=== PATIENT | male | born 1965 | race Caucasian/White ===

== ENCOUNTER 2017-02-18 10:55 | Inpatient (IN) | payer MEDICAID, OTHER ==
[~2017-02-18] VITALS: Ht 180.3 cm; Wt 69.3 kg
[2017-02-18] VITALS (11 sets, daily range): BP systolic 91–104; BP diastolic 52–65
[~2017-02-18 10:55] MED LIST: CARI-277; NOR10T
[2017-02-18] MEDS ORDERED: SODIUM CHLORIDE 0.9% 1,000 ML IVB ONE (11:20)
[2017-02-18] MEDS ORDERED: ONDANSETRON HCL 4 MG/2 ML VIAL IV ONE (11:30)
[2017-02-18 12:02] LABS: DEFINITIVE VIEW TRANSMISSION; Hematocrit 19.2 % (41.0-53.0); Mean Corpuscular Hemoglobin 26.7 pg (28.0-32.0); Mean Corpuscular Hgb Conc. 32.7 g/dL (32.0-36.0); Mean Corpuscular Volume 81.5 fL (80.0-100.0); Mean Platelet Volume 7.8 fL (7.4-10.4); Platelet Count (auto) 227 10^3/uL (140-450); Red Cell Distribution Width 17.5 % (11.6-16.0); SUSPECT VIEW TRANSMISSION; White Blood Cell 12.9 10^3/uL (4.4-10.8)
[2017-02-18 12:16] LABS: Hemoglobin 6.3 g/dL (13.5-17.5)
[2017-02-18 12:17] LABS: Metamyelocytes % 0; Myelocytes % 0; Promyelocytes % 0; Reactive Lymphocytes 0
[2017-02-18 12:18] LABS: Partial Thromboplastin Time 29.8 sec (22.64-33.71)
[2017-02-18 12:22] LABS: INR 1.34 (0.9-1.15); Prothrombin Time 14.7 sec (9.37-12.3)
[2017-02-18 12:25] LABS: Albumin 1.6 g/dL (3.4-5.0); BUN/Creatinine Ratio 22.9; Bilirubin, Total 0.9 mg/dL (0.2-1.0); Calcium 7.7 mg/dL (8.5-10.1); Magnesium 2.3 mg/dL (1.6-2.6); Potassium 3.3 mmol/L (3.5-5.1); Total Protein 5.6 g/dL (6.4-8.2)
[2017-02-18] MEDS ORDERED: cefTRIAXone 1GM/50ML D5W 50 ML IV ONE (12:30)
[2017-02-18] MEDS ORDERED: HYDROcodone-ACET 5/325MG TAB PO PRN (12:45)
[2017-02-18] MEDS ORDERED: MORPHINE SULF INJ 2 MG/ML SYRINGE 1ML IV PRN ×3 (12:45→13:30)
[2017-02-18] MEDS ORDERED: PROMETHAZINE HCL 25 MG/ML 1ML IV PRN (12:45)
[2017-02-18] MEDS ORDERED: LORazepam 0.5 MG TAB PO PRN (12:45)
[2017-02-18] MEDS ORDERED: NITROGLYCERIN 0.4 MG SL TAB SL PRN (12:45)
[2017-02-18] MEDS ORDERED: PANTOPRAZOLE SODIUM 40 MG/10 ML VIAL IV ONE (12:45)
[2017-02-18] MEDS ORDERED: TEMAZEPAM 15 MG CAP PO PRN (12:45)
[2017-02-18 13:09] LABS: Hypochromia Slight; Platelet Estimate Adequate
[2017-02-18] MEDS: SOD CHL 0.9%/ KCL 40MEQ 1,000 ML IV SCH ×2 (14:27→21:00)
[2017-02-18] MEDS: HYDROcodone-ACET 10/325MG TAB PO PRN ×2 (14:27→19:59)
[2017-02-18 17:09] LABS: Urine Bilirubin Negative (Negative); Urine Blood Negative /uL (Negative); Urine Color Yellow (Yellow); Urine Glucose Normal (Normal); Urine Ketone Negative (Negative); Urine Mucus FEW (None Seen); Urine Nitrite Negative (Negative); Urine RBC 4 /hpf (0 - 3); Urine Squamous Epithelial Cell FEW /hpf (<5); Urine Urobilinogen >12.0 mg/dL (Negative)
[2017-02-18 19:17] LABS: Hematocrit 18.8 % (41.0-53.0)
[2017-02-18 19:42] LABS: Hemoglobin 6.2 g/dL (13.5-17.5)
[2017-02-18] MEDS: MORPHINE SULF 15mg ER tab PO SCH (23:50)
[2017-02-19] VITALS (18 sets, daily range): BP systolic 100–130; BP diastolic 52–69
[2017-02-19] MEDS: HYDROcodone-ACET 10/325MG TAB PO PRN ×2 (04:24→14:28)
[2017-02-19 07:37] LABS: Basophils # (auto) 0 uL; Basophils % (auto) 0.2 % (0.0-2.0); Eosinophils # (auto) 0.1 uL; Eosinophils % (auto) 1.1 % (0.0-7.0); Hematocrit 26.8 % (41.0-53.0); Hemoglobin 8.9 g/dL (13.5-17.5); Lymphocytes # (auto) 1.4 uL; Lymphocytes % (auto) 9.8 % (10.0-50.0); Mean Corpuscular Hemoglobin 27.9 pg (28.0-32.0); Mean Corpuscular Hgb Conc. 33.3 g/dL (32.0-36.0); Mean Corpuscular Volume 83.8 fL (80.0-100.0); Mean Platelet Volume 8.1 fL (7.4-10.4); Monocytes # (auto) 0.6 uL; Neutrophils # (auto) 11.8 uL; Neutrophils % (auto) 84.9 % (37.0-80.0); Platelet Count (auto) 217 10^3/uL (140-450); Red Cell Distribution Width 17.1 % (11.6-16.0); White Blood Cell 13.9 10^3/uL (4.4-10.8)
[2017-02-19 08:10] LABS: Albumin 1.6 g/dL (3.4-5.0); BUN/Creatinine Ratio 23.1; Bilirubin, Total 1.4 mg/dL (0.2-1.0); Calcium 7.4 mg/dL (8.5-10.1); Potassium 3.6 mmol/L (3.5-5.1); Total Protein 5.5 g/dL (6.4-8.2)
[2017-02-19] MEDS: SOD CHL 0.9%/ KCL 40MEQ 1,000 ML IV SCH (08:12)
[2017-02-19] MEDS ORDERED: PANTOPRAZOLE SODIUM 40 MG/10 ML VIAL IV SCH (10:00)
[2017-02-19] MEDS: MORPHINE SULF 15mg ER tab PO SCH (10:35)
[2017-02-19] MEDS ORDERED: TAM04C PO (10:44)
[2017-02-19] MEDS ORDERED: FINA5TAB4 PO (10:44)
[2017-02-19] MEDS ORDERED: GABA300C8 PO (10:44)
[2017-02-19] MEDS ORDERED: LACTULOSE 20Gm/30ML SOLN ONE (14:27)
[2017-02-19] MEDS ORDERED: LACTULOSE 20Gm/30ML SOLN PO PRN (14:30)
== END 2017-02-19 16:15 | disposition home or self-care (01) | DRG 281 ==
LOC: EDSEX 10:55 → EDBD 10:55 → ER 10:58 → TELE 10:59 → DOU IN ICU 20:29
PROVIDERS: ADMIT Internal Medicine; ATTEND Internal Medicine Pulmonary Disease
PROC: 30233N1 Transfusion of Nonautologous Red Blood Cells into Peripheral Vein, Percutaneous Approach (ICD-10-PCS; principal; 2017-02-18)
DX: C78.7 Secondary malignant neoplasm of liver and intrahepatic bile duct (principal); E43 Unspecified severe protein-calorie malnutrition; D68.9 Coagulation defect, unspecified; C74.90 Malignant neoplasm of unspecified part of unspecified adrenal gland; C78.00 Secondary malignant neoplasm of unspecified lung; J44.0 Chronic obstructive pulmonary disease with (acute) lower respiratory infection; D64.9 Anemia, unspecified; R10.9 Unspecified abdominal pain; N40.0 Benign prostatic hyperplasia without lower urinary tract symptoms; F32.9 Major depressive disorder, single episode, unspecified; Z82.49 Family history of ischemic heart disease and other diseases of the circulatory system; Z83.3 Family history of diabetes mellitus; Z87.442 Personal history of urinary calculi; Z87.891 Personal history of nicotine dependence; R04.2 Hemoptysis; E87.6 Hypokalemia; Z68.21 Body mass index [BMI] 21.0-21.9, adult; K59.00 Constipation, unspecified
CPT/HCPCS: 36415; 36430; 71010; 74176; 80053; 81001; 82150; 83690; 83735; 85007; 85014; 85018; 85025; 85027; 85045; 85610; 85730; 86850; 86900; 86901; 86920; 87040; 87081; 93005; 93971; 94761; 96361; 96374; 96375; C9113; J0696

== ENCOUNTER 2017-03-09 14:34 | Inpatient (IN) | payer MEDICAID ==
[2017-03-09] VITALS (9 sets, daily range): BP systolic 92–151; BP diastolic 57–94
[~2017-03-09] VITALS: Ht 180.3 cm; Wt 75.0 kg
[~2017-03-09 14:34] MED LIST changes: +FINA5TAB4 PO; +GABA-497 PO; +TAM04C PO
[2017-03-09] MEDS ORDERED: DEXTROSE 50% SYRINGE 50 ML IV ONE (14:56)
[2017-03-09] MEDS ORDERED: DEXTROSE (50%) 50ML SYRG IV ONE ×2 (15:00→16:45)
[2017-03-09 16:02] LABS: Albumin 1.1 g/dL (3.4-5.0); BUN/Creatinine Ratio 29.9; Calcium 6.3 mg/dL (8.5-10.1)
[2017-03-09 16:03] LABS: Lactic Acid w/Reflex 5.3 mmol/L (0.4-2.0)
[2017-03-09 16:12] LABS: Bilirubin, Total 21.9 mg/dL (0.2-1.0); Total Protein 3.8 g/dL (6.4-8.2)
[2017-03-09] MEDS ORDERED: PIPERACILLIN-TAZOB 3.375GM 100 ML IV ONE (16:15)
[2017-03-09 16:24] LABS: Potassium 6.5 mmol/L (3.5-5.1)
[2017-03-09] MEDS ORDERED: ALBUTEROL SULF 2.5 MG/0.5ML(0.5%) NEB SOLN NEB STA (16:32)
[2017-03-09 16:37] LABS: REFLEX LACTIC ACID YES OR NO YES
[2017-03-09] MEDS ORDERED: SODIUM CHLORIDE 0.9% 1,000 ML IV ONE ×4 (16:38→18:30)
[2017-03-09] MEDS ORDERED: CALCIUM GLUC 4.65 MEQ/10ML 4.65 MEQ in SODIUM CHL 0.9% 50 ML IV ONE (16:45)
[2017-03-09] MEDS ORDERED: FUROSEMIDE 20 MG/2 ML VIAL IV ONE ×2 (16:45→21:45)
[2017-03-09] MEDS ORDERED: SODIUM BICARBONATE 8.4% INJ 50ML SYRINGE IV ONE (16:45)
[2017-03-09] MEDS ORDERED: metroNIDAZOLE 500MG/100ML 100 ML IV ONE (16:45)
[2017-03-09] MEDS ORDERED: SODIUM POLYSTYRENE SULF 15GM/60ML SUSP PO ONE ×2 (16:45→19:00)
[2017-03-09] MEDS ORDERED: InsuLIN REG 1unit/0.01ml Soln (100units/ml) IV ONE (16:45)
[2017-03-09 17:10] LABS: Allen Test Yes; Base Excess -4.9 mmol/L (-2.0-2.0); Blood COHb 5.1 % (0.5-1.5); Blood MetHb 0.3 % (0.0-1.5); HCO3 19.5 mmol/L (22-26.0); HHb 7.6 % (0.0-5.0); MODE MASK - NRB; PCO2 32.2 mmHg (35.0-45.0); PCO2(T) 32.2 mmHg (35.0-45.0); PO2 75.5 mmHg (80.0-100.0); PO2(T) 75.5 mmHg (80.0-100.0); Sample Type Arterial; pH 7.399 (7.350-7.450)
[2017-03-09 17:31] LABS: DEFINITIVE VIEW TRANSMISSION; Hematocrit 14.9 % (41.0-53.0); Mean Corpuscular Hemoglobin 32.1 pg (28.0-32.0); Mean Corpuscular Hgb Conc. 33.9 g/dL (32.0-36.0); Mean Corpuscular Volume 94.8 fL (80.0-100.0); Mean Platelet Volume 9.4 fL (7.4-10.4); SUSPECT VIEW TRANSMISSION; White Blood Cell 17.6 10^3/uL (4.4-10.8)
[2017-03-09 17:44] LABS: Platelet Count (auto) 56 10^3/uL (140-450)
[2017-03-09 17:46] LABS: Hemoglobin 5.1 g/dL (13.5-17.5)
[2017-03-09 17:48] LABS: Promyelocytes % 0; Reactive Lymphocytes 0
[2017-03-09 18:07] LABS: Metamyelocytes % 2; Myelocytes % 1
[2017-03-09 18:08] LABS: Hypersegmented Neutrophils Present
[2017-03-09 18:09] LABS: Polychromasia Moderate
[2017-03-09 18:12] LABS: Anisocytosis Moderate; Burr Cells FEW; Schistocytes FEW
[2017-03-09 18:14] LABS: Platelet Estimate Decrea; Tear Drop Cells FEW
[2017-03-09] MEDS ORDERED: SODIUM CHLORIDE 0.9% 1,000 ML IV SCH ×2 (18:26→21:45)
[2017-03-09] MEDS ORDERED: MORPHINE SULF INJ 2 MG/ML SYRINGE 1ML IV PRN (18:30)
[2017-03-09] MEDS ORDERED: ALBUTEROL SULF 2.5 MG/0.5ML(0.5%) NEB SOLN NEB PRN (18:30)
[2017-03-09] MEDS ORDERED: PANTOPRAZOLE SODIUM 40 MG/10 ML VIAL IV ONE (18:30)
[2017-03-09] MEDS ORDERED: LORazepam 0.5 MG TAB PO PRN (18:30)
[2017-03-09] MEDS ORDERED: PIPERACILLIN-TAZOB 2.25GM 50 ML IV ONE (18:30)
[2017-03-09] MEDS ORDERED: NITROGLYCERIN 0.4 MG SL TAB SL PRN (18:30)
[2017-03-09] MEDS ORDERED: LACTULOSE 20Gm/30ML SOLN PO PRN (18:30)
[2017-03-09] MEDS ORDERED: TEMAZEPAM 15 MG CAP PO PRN (18:30)
[2017-03-09] MEDS ORDERED: AZITHROMYCIN 500MG/D5W 250ML 250 ML IV SCH (18:42)
[2017-03-09] MEDS: AZITHROMYCIN 500MG/D5W 250ML 250 ML IV SCH (18:45)
[2017-03-09 18:58] LABS: Amylase 246 U/L (25-115)
[2017-03-09 19:01] LABS: INR 2.8 (0.9-1.15); Partial Thromboplastin Time 50.5 sec (22.64-33.71); Prothrombin Time 30.8 sec (9.37-12.3)
[2017-03-09] MEDS ORDERED: NOREPINEPHRINE BITARTRATE 250 ML IV ONE (19:04)
[2017-03-09] MEDS: NOREPINEPHRINE BITARTRATE 250 ML IV SCH (19:27)
[2017-03-09 19:28] LABS: Urine RBC None Seen /hpf (0 - 3)
[2017-03-09 20:08] LABS: Urine Color Brown (Yellow); Urine Glucose Normal (Normal); Urine Ketone Negative (Negative); Urine Nitrite Negative (Negative); Urine Squamous Epithelial Cell FEW /hpf (<5)
[2017-03-09 20:13] LABS: Urine Blood 1+ /uL (Negative)
[2017-03-09 20:14] LABS: Urine Bilirubin 4+ (Negative)
[2017-03-09] MEDS ORDERED: ALBUMIN 25% 50 ML IV ONE (21:45)
[2017-03-09] MEDS: PIPERACILLIN-TAZOB 2.25GM 50 ML IV SCH (23:59)
[2017-03-09] MEDS: ALBUTEROL SULF 2.5 MG/0.5ML(0.5%) NEB SOLN NEB SCH (23:59)
[2017-03-10] VITALS (93 sets, daily range): BP systolic 85–115; BP diastolic 47–67
[2017-03-10] MEDS ORDERED: SODIUM POLYSTYRENE SULF 15GM/60ML SUSP PO ONE (00:15)
[2017-03-10] MEDS ORDERED: SODIUM POLYSTYRENE SULF 15GM/60ML SUSP ONE (00:33)
[2017-03-10] MEDS: metroNIDAZOLE 500MG/100ML 100 ML IV SCH ×2 (01:02→10:35)
[2017-03-10] MEDS: PROMETHAZINE HCL 25 MG/ML 1ML IV PRN (02:44)
[2017-03-10] MEDS: PIPERACILLIN-TAZOB 2.25GM 50 ML IV SCH ×3 (04:06→19:37)
[2017-03-10 05:42] LABS: Hematocrit 22.9 % (41.0-53.0); Hemoglobin 7.8 g/dL (13.5-17.5)
[2017-03-10] MEDS: ALBUTEROL SULF 2.5 MG/0.5ML(0.5%) NEB SOLN NEB SCH ×3 (05:54→18:13)
[2017-03-10] MEDS: PANTOPRAZOLE SODIUM 40 MG/10 ML VIAL IV SCH (10:34)
[2017-03-10 12:18] LABS: DEFINITIVE VIEW TRANSMISSION; Hematocrit 23.4 % (41.0-53.0); Hemoglobin 8.2 g/dL (13.5-17.5); Mean Corpuscular Hemoglobin 32.9 pg (28.0-32.0); Mean Corpuscular Volume 93.9 fL (80.0-100.0); Mean Platelet Volume 9.2 fL (7.4-10.4); Platelet Count (auto) 59 10^3/uL (140-450); Red Cell Distribution Width 18.2 % (11.6-16.0); SUSPECT VIEW TRANSMISSION; White Blood Cell 28.4 10^3/uL (4.4-10.8)
[2017-03-10 12:25] LABS: BUN/Creatinine Ratio 33.6; Calcium 6.7 mg/dL (8.5-10.1); Magnesium 2.9 mg/dL (1.6-2.6); Metamyelocytes % 0; Myelocytes % 0; Potassium 4.9 mmol/L (3.5-5.1); Promyelocytes % 0; Reactive Lymphocytes 0
[2017-03-10] MEDS: AZITHROMYCIN 500MG/D5W 250ML 250 ML IV SCH (12:45)
[2017-03-10] MEDS ORDERED: VANCOMYCIN 1GM/250ML D5W 250 ML IV ONE ×2 (13:15→15:00)
[2017-03-10] MEDS ORDERED: VANCOMYCIN PER PHARMACY 0 MG IV SCH (13:15)
[2017-03-10 14:26] LABS: Burr Cells FEW; Ovalocytes FEW; Platelet Estimate Decreased; Tear Drop Cells FEW
[2017-03-10 14:27] LABS: Polychromasia Moderate
[2017-03-10 14:36] LABS: Allen Test Yes; Base Excess -3.4 mmol/L (-2.0-2.0); Blood 02Sat 93.3 % (96-100); Blood COHb 3.6 % (0.5-1.5); Blood MetHb 0.2 % (0.0-1.5); HCO3 20.8 mmol/L (22-26.0); HHb 6.4 % (0.0-5.0); MODE HIGH FLOW; O2Hb 89.8 % (94.0-97.0); PCO2 33.6 mmHg (35.0-45.0); PCO2(T) 33.6 mmHg (35.0-45.0); PO2 73.8 mmHg (80.0-100.0); PO2(T) 73.8 mmHg (80.0-100.0); Sample Type Arterial; pH 7.409 (7.350-7.450)
[2017-03-10] MEDS: LACTULOSE 20Gm/30ML SOLN PO SCH ×2 (14:54→16:38)
[2017-03-10] MEDS: IPRATROPIUM BROM 0.5 MG/2.5ML INH SOL NEB SCH (18:12)
[2017-03-10 19:22] LABS: Albumin 1.6 g/dL (3.4-5.0); Calcium 6.4 mg/dL (8.5-10.1); Magnesium 2.5 mg/dL (1.6-2.6); Partial Thromboplastin Time 42.5 sec (22.64-33.71); Potassium 4.5 mmol/L (3.5-5.1)
[2017-03-10 19:26] LABS: BUN/Creatinine Ratio 35.2
[2017-03-10 19:36] LABS: Bilirubin, Total 30.2 mg/dL (0.2-1.0)
[2017-03-10 19:43] LABS: INR 2.02 (0.9-1.15); Prothrombin Time 22.2 sec (9.37-12.3)
[2017-03-10 19:54] LABS: DEFINITIVE VIEW TRANSMISSION; Hematocrit 23.8 % (41.0-53.0); Hemoglobin 8.1 g/dL (13.5-17.5); Mean Corpuscular Hemoglobin 32.5 pg (28.0-32.0); Mean Corpuscular Hgb Conc. 34.2 g/dL (32.0-36.0); Mean Corpuscular Volume 95.1 fL (80.0-100.0); Mean Platelet Volume 9.3 fL (7.4-10.4); Platelet Count (auto) 49 10^3/uL (140-450); Red Cell Distribution Width 19.1 % (11.6-16.0); SUSPECT VIEW TRANSMISSION; White Blood Cell 26.8 10^3/uL (4.4-10.8)
[2017-03-10 19:59] LABS: Promyelocytes % 0; Reactive Lymphocytes 0
[2017-03-10 20:01] LABS: Bilirubin, Direct 25.9 mg/dL (0-0.2); Total Protein 4.3 g/dL (6.4-8.2)
[2017-03-10 20:23] LABS: Metamyelocytes % 2; Myelocytes % 2
[2017-03-10 20:24] LABS: Platelet Estimate Decreased; Polychromasia Moderate
[2017-03-10 20:25] LABS: Burr Cells FEW; Ovalocytes FEW; Tear Drop Cells FEW
[2017-03-10 20:26] LABS: Anisocytosis Slight
[2017-03-10] MEDS: NOREPINEPHRINE BITARTRATE 250 ML IV SCH (21:13)
[2017-03-10] MEDS ORDERED: LACTULOSE 20Gm/30ML SOLN PO SCH (22:00)
[2017-03-11] VITALS (74 sets, daily range): BP systolic 67–124; BP diastolic 40–69
[2017-03-11] MEDS: PIPERACILLIN-TAZOB 2.25GM 50 ML IV SCH ×4 (00:21→18:00)
[2017-03-11] MEDS: IPRATROPIUM BROM 0.5 MG/2.5ML INH SOL NEB SCH ×5 (00:39→23:55)
[2017-03-11] MEDS: ALBUTEROL SULF 2.5 MG/0.5ML(0.5%) NEB SOLN NEB SCH ×5 (00:39→23:55)
[2017-03-11] MEDS: PROMETHAZINE HCL 25 MG/ML 1ML IV PRN ×2 (00:45→20:46)
[2017-03-11] MEDS: MORPHINE SULF INJ 2 MG/ML SYRINGE 1ML IV PRN ×5 (00:45→20:46)
[2017-03-11 03:17] LABS: DEFINITIVE VIEW TRANSMISSION; Hematocrit 24.5 % (41.0-53.0); Hemoglobin 8.3 g/dL (13.5-17.5); Mean Corpuscular Hemoglobin 32.5 pg (28.0-32.0); Mean Corpuscular Hgb Conc. 33.8 g/dL (32.0-36.0); Mean Corpuscular Volume 96.1 fL (80.0-100.0); Mean Platelet Volume 8.9 fL (7.4-10.4); Platelet Count (auto) 48 10^3/uL (140-450); Red Cell Distribution Width 19.9 % (11.6-16.0); SUSPECT VIEW TRANSMISSION; White Blood Cell 26.1 10^3/uL (4.4-10.8)
[2017-03-11 03:28] LABS: Metamyelocytes % 0; Myelocytes % 0; Promyelocytes % 0; Reactive Lymphocytes 0
[2017-03-11 03:31] LABS: Albumin 1.6 g/dL (3.4-5.0); Calcium 6.3 mg/dL (8.5-10.1); Magnesium 2.7 mg/dL (1.6-2.6); Partial Thromboplastin Time 45.2 sec (22.64-33.71)
[2017-03-11 03:36] LABS: INR 2.09 (0.9-1.15); Prothrombin Time 22.9 sec (9.37-12.3)
[2017-03-11 03:45] LABS: Bilirubin, Total 28.2 mg/dL (0.2-1.0); Total Protein 4.2 g/dL (6.4-8.2)
[2017-03-11 04:24] LABS: Bilirubin, Direct 25.3 mg/dL (0-0.2)
[2017-03-11 05:34] LABS: Anisocytosis Slight; Burr Cells FEW; Platelet Estimate Markedly Decreased
[2017-03-11] MEDS: NOREPINEPHRINE BITARTRATE 250 ML IV SCH (07:00)
[2017-03-11] MEDS: SODIUM CHLORIDE 0.9% 1,000 ML IV SCH ×3 (07:45→17:45)
[2017-03-11] MEDS: VANCOMYCIN 1GM/250ML D5W 250 ML IV SCH ×2 (08:00→20:00)
[2017-03-11] MEDS: PANTOPRAZOLE SODIUM 40 MG/10 ML VIAL IV SCH (10:00)
[2017-03-11] MEDS: LACTULOSE 20Gm/30ML SOLN PO SCH (13:30)
[2017-03-11 19:05] LABS: DEFINITIVE VIEW TRANSMISSION; Mean Corpuscular Hgb Conc. 33.1 g/dL (32.0-36.0); Mean Corpuscular Volume 96.8 fL (80.0-100.0); Mean Platelet Volume 9.8 fL (7.4-10.4); Platelet Count (auto) 37 10^3/uL (140-450); SUSPECT VIEW TRANSMISSION; White Blood Cell 22.5 10^3/uL (4.4-10.8)
[2017-03-11 19:22] LABS: INR 2.39 (0.9-1.15); Partial Thromboplastin Time 51.7 sec (22.64-33.71); Prothrombin Time 26.3 sec (9.37-12.3)
[2017-03-11 19:28] LABS: Albumin 1.4 g/dL (3.4-5.0); BUN/Creatinine Ratio 39.2; Bilirubin, Total 28.1 mg/dL (0.2-1.0); Calcium 6.3 mg/dL (8.5-10.1); Magnesium 2.7 mg/dL (1.6-2.6); Potassium 3.6 mmol/L (3.5-5.1)
[2017-03-11 19:29] LABS: Bilirubin, Direct 23.6 mg/dL (0-0.2); Red Cell Distribution Width 20.3 % (11.6-16.0)
[2017-03-11 19:31] LABS: Promyelocytes % 0; Reactive Lymphocytes 0
[2017-03-11] MEDS ORDERED: D5W/SOD CHL 0.45% 1,000 ML IV SCH (19:45)
[2017-03-11 20:04] LABS: Anisocytosis Slight; Burr Cells FEW; Metamyelocytes % 2; Myelocytes % 2; Polychromasia Moderate; Tear Drop Cells FEW; Toxic Granulation Slight
[2017-03-11 20:05] LABS: Ovalocytes FEW; Platelet Estimate Markedly Decreased
[2017-03-11] MEDS ORDERED: MORPHINE SULF INJ 2 MG/ML SYRINGE 1ML IV PRN ×2 (22:45)
[2017-03-11] MEDS ORDERED: LORazepam 2MG/ML-1ML VIAL IV PRN (22:45)
== END 2017-03-12 00:36 | disposition expired | DRG 720 ==
LOC: EDBD 14:34 → ER 14:46 → TELE 14:47 → DOU IN ICU 23:12 → ICU WEST 03-10 13:27
PROVIDERS: ADMIT Internal Medicine; ATTEND Internal Medicine
PROC: 02HV33Z Insertion of Infusion Device into Superior Vena Cava, Percutaneous Approach (ICD-10-PCS; principal; 2017-03-09)
PROC: 30233L1 Transfusion of Nonautologous Fresh Plasma into Peripheral Vein, Percutaneous Approach (ICD-10-PCS; 2017-03-09)
PROC: 30233N1 Transfusion of Nonautologous Red Blood Cells into Peripheral Vein, Percutaneous Approach (ICD-10-PCS; 2017-03-09)
PROC: 30233K1 Transfusion of Nonautologous Frozen Plasma into Peripheral Vein, Percutaneous Approach (ICD-10-PCS; 2017-03-09)
DX: A41.9 Sepsis, unspecified organism (principal); R65.21 Severe sepsis with septic shock; G93.41 Metabolic encephalopathy; K85.90 Acute pancreatitis without necrosis or infection, unspecified; N17.9 Acute kidney failure, unspecified; C78.00 Secondary malignant neoplasm of unspecified lung; J18.9 Pneumonia, unspecified organism; C78.7 Secondary malignant neoplasm of liver and intrahepatic bile duct; D69.6 Thrombocytopenia, unspecified; K72.90 Hepatic failure, unspecified without coma; D64.9 Anemia, unspecified; E87.5 Hyperkalemia; N39.0 Urinary tract infection, site not specified; N40.0 Benign prostatic hyperplasia without lower urinary tract symptoms; E88.09 Other disorders of plasma-protein metabolism, not elsewhere classified; B17.9 Acute viral hepatitis, unspecified; J44.0 Chronic obstructive pulmonary disease with (acute) lower respiratory infection; Z66 Do not resuscitate; Z82.49 Family history of ischemic heart disease and other diseases of the circulatory system; Z83.3 Family history of diabetes mellitus; Z85.858 Personal history of malignant neoplasm of other endocrine glands; Z87.442 Personal history of urinary calculi; Z87.891 Personal history of nicotine dependence; K57.90 Diverticulosis of intestine, part unspecified, without perforation or abscess without bleeding; Z85.9 Personal history of malignant neoplasm, unspecified; Z71.89 Other specified counseling; E87.6 Hypokalemia; C64.9 Malignant neoplasm of unspecified kidney, except renal pelvis; Z51.5 Encounter for palliative care; C74.90 Malignant neoplasm of unspecified part of unspecified adrenal gland
CPT/HCPCS: 36415; 36430; 36556; 36600; 51702; 70450; 71010; 74176; 76775; 80048; 80053; 80076; 80202; 81001; 82140; 82150; 82570; 82805; 83605; 83690; 83735; 84132; 84300; 85007; 85014; 85018; 85027; 85045; 85610; 85730; 86850; 86900; 86901; 86920; 87040; 87081; 93005; 93970; 94640; 96361; 96365; 96368; 96375; 99291; C9113; J1815; J2543; J3490